=== PATIENT | female | born 1945 | race Caucasian/White ===

== ENCOUNTER → 2016-11-21 | Day surgery (SDC) | payer OTHER, MEDICARE ==
--- NOTE | 2016-11-22 15:30 | PATH ---
Cytology Non-Gynecological Report Patient Name: SYD SILVERIO [facility]. Rec. #: [id number] /Age/Gender: 1945 (Age: 71) / F Account: [id number] Location: RADIOLOGY Taken: 11/21/2016 Received: 11/21/2016 Reported: 11/22/2016 Physicians: Tim Ferrell Specimen(s) Received RIGHT THYROID FNA Clinical History Right thyroid nodule, 1.51 x 1.05 x 1.87 cm Final Diagnosis THYROID GLAND, RIGHT LOBE, US GUIDED FINE NEEDLE ASPIRATION BIOPSY: SATISFACTORY FOR EVALUATION. NO MALIGNANT CELLS IDENTIFIED. 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 Comment: The smears and cell block show clusters of bland appearing follicular epithelial cells. Many cells show Hurthle cell (oncocytic) change. Numerous macrophages are present indicative of cystic change. Colloid is present. Electronically Signed Tashi Jama M.D. Gross Description Received are four air dried smears, four smears in 95% alcohol, and 20 cc of bloody fluid in formalin. Four diff-quik stained slides, four Pap stained slides and one cell block are made.
== END | disposition home or self-care (01) ==
LOC: JRADIR 08:39
PROVIDERS: ATTEND Family Medicine
PROC: 0GBH3ZX Excision of Right Thyroid Gland Lobe, Percutaneous Approach, Diagnostic (ICD-10-PCS; principal; 2016-11-21)
PROC: BG44ZZZ Ultrasonography of Thyroid Gland (ICD-10-PCS; 2016-11-21)
DX: E04.2 Nontoxic multinodular goiter (principal)
CPT/HCPCS: 76942; 88173; 88305-TC

== ENCOUNTER → 2016-12-19 | Day surgery (SDC) | payer OTHER, MEDICARE ==
--- NOTE | 2016-12-20 13:58 | PATH ---
Cytology Non-Gynecological Report Patient Name: SYD SILVERIO [facility]. Rec. #: [id number] /Age/Gender: 1945 (Age: 71) / F Account: [id number] Location: RADIOLOGY Taken: 12/19/2016 Received: 12/19/2016 Reported: 12/20/2016 Physicians: Tim Ferrell Specimen(s) Received LEFT THYROID FNA Clinical History Left thyroid nodule, 1.00 x 1.29 x 0.84 cm Final Diagnosis THYROID GLAND, LEFT LOBE, US GUIDED FINE NEEDLE ASPIRATION BIOPSY: SATISFACTORY FOR EVALUATION. NO MALIGNANT CELLS IDENTIFIED. 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 Comment: The smears show clusters of bland appearing follicular epithelial cells some with Hurthle cell (oncocytic) change. Colloid is present. Electronically Signed Tashi Jama M.D. Gross Description Received are four air dried smears, four smears in 95% alcohol, and 20 cc of bloody fluid in formalin. Four diff-quik stained slides, four Pap stained slides and one cell block are made.
== END | disposition home or self-care (01) ==
LOC: JRADIR 08:50
PROVIDERS: ATTEND Family Medicine
PROC: 0G9G3ZX Drainage of Left Thyroid Gland Lobe, Percutaneous Approach, Diagnostic (ICD-10-PCS; principal; 2016-12-19)
PROC: BG44ZZZ Ultrasonography of Thyroid Gland (ICD-10-PCS; 2016-12-19)
DX: E04.1 Nontoxic single thyroid nodule (principal)
CPT/HCPCS: 76942; 88173; 88305-TC

== ENCOUNTER 2020-10-25 09:00 | Day surgery (SDC) | payer OTHER, MEDICARE ==
[2020-10-19 11:31] VITALS: BMI 23.2
[2020-10-25] MEDS ORDERED: LIDOCAINE HCL/PF 2% SDV 5ML VIAL ONE (09:11)
[2020-10-25] MEDS ORDERED: PROPOFOL 20 ML ONE ×2 (09:11)
[2020-10-25 11:36] VITALS: BP 108/65; PULSE 65; TEMP 99
== END 2020-10-25 12:20 | disposition home or self-care (01) ==
LOC: FASU-ENDO 09:00
PROVIDERS: ATTEND Internal Medicine Gastroenterology
PROC: 0DBL8ZX Excision of Transverse Colon, Via Natural or Artificial Opening Endoscopic, Diagnostic (ICD-10-PCS; 2020-10-25)
PROC: 0DBP8ZX Excision of Rectum, Via Natural or Artificial Opening Endoscopic, Diagnostic (ICD-10-PCS; 2020-10-25)
PROC: 0DBM8ZX Excision of Descending Colon, Via Natural or Artificial Opening Endoscopic, Diagnostic (ICD-10-PCS; 2020-10-25)
PROC: 0DBK8ZX Excision of Ascending Colon, Via Natural or Artificial Opening Endoscopic, Diagnostic (ICD-10-PCS; principal; 2020-10-25 10:23)
DX: R19.7 Diarrhea, unspecified (principal); K64.1 Second degree hemorrhoids; K64.8 Other hemorrhoids; K57.30 Diverticulosis of large intestine without perforation or abscess without bleeding; Z88.1 Allergy status to other antibiotic agents
CPT/HCPCS: 88305-TC